=== PATIENT | male | born 1960 | race Caucasian/White ===

== ENCOUNTER 2020-05-21 13:53 | Emergency (ER) | payer MEDICAID ==
[~2020-05-21] VITALS: Ht 170.2 cm; Wt 88.9 kg
[2020-05-21 13:57] VITALS: BP 184/74
--- NOTE | 2020-05-21 14:29 | NUR ---
Pt ambulated to ER bed 1.
--- NOTE | 2020-05-21 14:32 | NUR ---
59 Y/O MALE C/O ABDOMINAL PAIN 11/30 DESCRIBES SHARP RADIATES TO LLQ X8 DAYS. PATIENT STATES HE FEELS BLOATED ONLY ON LEFT SIDE AND STATES HE IS HAVING N/V X8 DAYS. DENIES FEVER/CHILLS. ABD IS LARGE, ROUND TENDER TO PALPATION TO LUQ. PT STATES HE IS WITH HOSPICE CARE FOR HIS PAIN AND NORCO USUALLY TAKEN TO MANAGE IT, PT STATES HE HAS RAN OUT OF RX. PMH: FACTOR 5 DEFICIENCY, NEUROPATHY, RIGHT ARM AMPUTATION NKA
[2020-05-21] MEDS ORDERED: HYDROcodone/APAP 5/325 MG 1 TAB TAB PO ONE (15:25)
--- NOTE | 2020-05-21 15:30 | NUR ---
IV established to left AC 20G, good blood return. Pt tolerated procedure well.
[2020-05-21] MEDS ORDERED: TRAZ-343 PO (15:44)
[2020-05-21] MEDS ORDERED: ALOG25TA PO (15:44)
[2020-05-21] MEDS ORDERED: ARIP5TAB8 PO (15:44)
[2020-05-21] MEDS ORDERED: GABA300C PO (15:44)
[2020-05-21] MEDS ORDERED: ASPI-1822 PO (15:44)
[2020-05-21] MEDS ORDERED: RIVA20TA PO (15:44)
[2020-05-21] MEDS ORDERED: ACET-9882 PO (15:44)
[2020-05-21] MEDS ORDERED: GLIP10TA3 PO (15:44)
[2020-05-21] MEDS ORDERED: IBUP200C97 PO (15:44)
--- NOTE | 2020-05-21 15:49 | NUR ---
Obtained CT consent, placed in pt chart.
[2020-05-21 15:52] LABS: BASOPHILS # (AUTO) 0.1 K/uL (0.00-0.22); BASOPHILS % (AUTO) 1.7 % (0.0-2.0); EOSINOPHILS # (AUTO) 0.1 K/uL (0-0.4); EOSINOPHILS % (AUTO) 2.5 % (0.0-4.0); HEMATOCRIT 38.9 % (36-52); HEMOGLOBIN 14.1 g/dL (12.0-18.0); LYMPHOCYTES # (AUTO) 1.3 K/uL (2.0-11.5); LYMPHOCYTES % (AUTO) 25.1 % (20.5-51.1); MEAN CORPUSCULAR HEMOGLOBIN 31 pg (27-31); MEAN CORPUSCULAR HGB CONC 36 g/dL (33-37); MEAN CORPUSCULAR VOLUME 85.1 fL (80-94); MONOCYTES # (AUTO) 1.1 K/uL (0.8-1.0); MONOCYTES % (AUTO) 20.6 % (1.7-9.3); NEUTROPHILS # (AUTO) 2.6 K/uL (1.8-7.7); NEUTROPHILS % (AUTO) 50.1 % (42.2-75.2); PLATELET COUNT (AUTO) 209 K/uL (140-450); RED BLOOD CELL COUNT(AUTO) 4.58 MIL/uL (4.20-6.10); RED CELL DISTRIBUTION WIDTH 13.7 % (11.6-13.7); WHITE BLOOD COUNT (AUTO) 5.1 K/uL (4.8-10.8)
[2020-05-21 16:39] LABS: PROTHROMBIN TIME 11.9 secs (10.8-13.4)
[2020-05-21] MEDS ORDERED: INSULIN REGULAR, HUMAN 100 UNIT/ML VIAL SUBQ ONE (17:15)
[2020-05-21] MEDS ORDERED: NACL 0.9% 1,000 ML IV ONE (17:15)
--- NOTE | 2020-05-21 17:19 | NUR ---
Pt taken to CT via W/C, per Mignon IV infiltrated when flushing. Brought pt back to ER bed 1.
--- NOTE | 2020-05-21 17:44 | NUR ---
Dr. Sanchez at pt bedside for IV insertion via US.
--- NOTE | 2020-05-21 18:07 | NUR ---
Pt taken to CT via W/C.
--- NOTE | 2020-05-21 18:27 | NUR ---
PT BROUGHT BACK TO ER BED 1 VIA W/C.
[2020-05-21 19:20] LABS: ANION GAP 13.9 (8-16); CARBON DIOXIDE 23.9 mmol/L (21-32)
[2020-05-21 19:21] LABS: ALBUMIN 3.2 g/dL (3.4-5.0); TOTAL BILIRUBIN 0.5 mg/dL (0.0-1.0)
[2020-05-21 19:23] LABS: POTASSIUM 3.8 mmol/L (3.5-5.1)
[2020-05-21] MEDS ORDERED: ONDA4TAB PO (19:31)
[2020-05-21] MEDS ORDERED: ACET-9525 PO (19:31)
[2020-05-21 19:42] VITALS: BP 128/70
--- NOTE | 2020-05-21 19:43 | NUR ---
Patient discharged with v/s stable. Written and verbal after care instructions given and explained. Patient alert, oriented and verbalized understanding of instructions. Ambulatory with steady gait. All questions addressed prior to discharge. ID band removed. Patient advised to follow up with PMD. Rx of NORCO 5MG-325MG PO PRN PAIN Q6H, AND ZOFRAN 4MG PO Q6H PRN N/V given. Patient educated on indication of medication including possible reaction and side effects. Opportunity to ask questions provided and answered.
== END 2020-05-21 19:43 | disposition home or self-care (01) ==
LOC: MED 13:53
DX: R10.9 Unspecified abdominal pain (principal); E11.65 Type 2 diabetes mellitus with hyperglycemia; Z79.84 Long term (current) use of oral hypoglycemic drugs; Z79.899 Other long term (current) drug therapy; Z79.82 Long term (current) use of aspirin; Z89.201 Acquired absence of right upper limb, unspecified level
CPT/HCPCS: 36415; 71275; 74174; 80053; 83690; 85025; 85610; 85730; 96360; 96372; 99285; J1815; Q9967

== ENCOUNTER 2021-06-09 18:35 | Emergency (ER) | payer MEDICAID ==
[~2021-06-09] VITALS: Ht 170.2 cm; Wt 83.9 kg
[2021-06-09 18:35] VITALS: BP 103/69
[~2021-06-09 18:35] MED LIST: ACET-9525 PO; ACET-9882 PO; ALOG25TA PO; ARIP5TAB8 PO; ASPI-1822 PO; GABA300C PO; GLIP10TA3 PO; IBUP200C97 PO; ONDA4TAB PO; RIVA20TA PO; TRAZ-343 PO
[2021-06-09] MEDS: NACL 0.9% 1,000 ML IV ONE (19:21)
[2021-06-09 19:24] LABS: BASOPHILS # (AUTO) 0.1 K/uL (0.00-0.22); BASOPHILS % (AUTO) 0.9 % (0.0-2.0); EOSINOPHILS # (AUTO) 0.4 K/uL (0-0.4); EOSINOPHILS % (AUTO) 4.4 % (0.0-4.0); HEMATOCRIT 43.3 % (36-52); HEMOGLOBIN 14.8 g/dL (12.0-18.0); LYMPHOCYTES # (AUTO) 2.4 K/uL (2.0-11.5); LYMPHOCYTES % (AUTO) 25.3 % (20.5-51.1); MEAN CORPUSCULAR HEMOGLOBIN 28 pg (27-31); MEAN CORPUSCULAR HGB CONC 34 g/dL (33-37); MEAN CORPUSCULAR VOLUME 82.2 fL (80-94); MONOCYTES # (AUTO) 0.9 K/uL (0.8-1.0); MONOCYTES % (AUTO) 9.6 % (1.7-9.3); NEUTROPHILS # (AUTO) 5.7 K/uL (1.8-7.7); NEUTROPHILS % (AUTO) 59.8 % (42.2-75.2); PLATELET COUNT (AUTO) 290 K/uL (140-450); RED BLOOD CELL COUNT(AUTO) 5.26 MIL/uL (4.20-6.10); RED CELL DISTRIBUTION WIDTH 13.3 % (11.6-13.7); WHITE BLOOD COUNT (AUTO) 9.5 K/uL (4.8-10.8)
[2021-06-09 19:41] LABS: PROTHROMBIN TIME 12.4 secs (10.8-13.4)
[2021-06-09 19:44] LABS: ALBUMIN 3.2 g/dL (3.4-5.0); ANION GAP 12.4 (8-16); CARBON DIOXIDE 28.3 mmol/L (21-32); POTASSIUM 3.7 mmol/L (3.5-5.1); TOTAL BILIRUBIN 0.3 mg/dL (0.0-1.0)
[2021-06-10 01:25] VITALS: BP 113/71
== END 2021-06-10 01:25 | disposition home or self-care (01) ==
LOC: MED 18:35
DX: R55 Syncope and collapse (principal); Z20.822 Contact with and (suspected) exposure to COVID-19; E11.9 Type 2 diabetes mellitus without complications; R79.1 Abnormal coagulation profile; Z86.2 Personal history of diseases of the blood and blood-forming organs and certain disorders involving the immune mechanism; I10 Essential (primary) hypertension; Z86.718 Personal history of other venous thrombosis and embolism; Z98.890 Other specified postprocedural states; Z79.899 Other long term (current) drug therapy; Z79.01 Long term (current) use of anticoagulants; Z79.82 Long term (current) use of aspirin; Z79.891 Long term (current) use of opiate analgesic
CPT/HCPCS: 36415; 71045; 71275; 80053; 85025; 85379; 85610; 85730; 87426; 87804; 93005; 96360; 99285; J7030; Q0092; Q9967